=== PATIENT | female | born 1950 | race Caucasian/White ===

== ENCOUNTER 2020-08-22 08:59 | Outpatient (CLI) | payer MEDICARE, OTHER | END 2020-08-22 23:59 | disposition home or self-care (01) | LOC: CFH 08:59 → EDSTATUS 09:15 → CFH 23:59 | PROVIDERS: ATTEND Family Medicine | DX: Z12.2 Encounter for screening for malignant neoplasm of respiratory organs (principal); F17.210 Nicotine dependence, cigarettes, uncomplicated; Z80.1 Family history of malignant neoplasm of trachea, bronchus and lung | CPT/HCPCS: 71271 ==